=== PATIENT | male | born 1975 | race Caucasian/White ===

== ENCOUNTER 2017-07-07 22:28 | Emergency (ER) | payer OTHER ==
[2017-07-07] MEDS ORDERED: Albuterol/Ipratropium 3.0-0.5 MG/3 ML Neb Soln NEB ONE (23:23)
--- NOTE | 2017-07-07 23:25 | EDM.PDOC ---
ED HPI GENERAL MEDICAL PROBLEM - General Chief Complaint: Respiratory Problem Stated Complaint: COUGH/CONGESTION/FEVER Time Seen by Provider: 07/07/17 23:18 - History of Present Illness INITIAL COMMENTS - FREE TEXT/NARRATIVE: HISTORY AND PHYSICAL: History of present illness: The patient is a healthy 41-year-old male with no stated medical history who does smoke cigarettes but no drug use and presents with a one-week history of dry hacking cough sore throat and nasal congestion and subjective fevers and body aches. He's had no vomiting or diarrhea no chest pain no shortness of breath and no abdominal complaints. Patient did not get his flu shot this year. Review of systems: As per history of present illness and below otherwise all systems reviewed and negative. Past medical history: As per history of present illness and as reviewed below otherwise noncontributory. Surgical history: As per history of present illness and as reviewed below otherwise noncontributory. Social history: No reported history of drug or alcohol abuse. Family history: As per history of present illness and as reviewed below otherwise noncontributory. Physical exam: Gen.: Well-developed well-nourished man who was slight raspiness to his voice and has a dry cough I appreciated in the ER. Vital signs were noted by me HEENT: Atraumatic, normocephalic, pupils reactive, negative for conjunctival pallor or scleral icterus, mucous membranes moist, throat clear of exudates but there is diffuse erythema, there is some anterior cervical adenopathy but no posterior adenopathy or nuchal rigidity, neck supple, nontender, trachea midline. Lungs: Clear to auscultation, breath sounds equal bilaterally, chest nontender. No wheezing stridor or sensory muscle use Heart: S1S2, regular, negative for clicks, rubs, or JVD. Abdomen: Soft, nondistended, nontender. NABS. Pelvis: Deferred Genitourinary: Deferred. Rectal: Deferred. Extremities: Atraumatic, negative for cords or calf pain. Neurovascular unremarkable. Neuro: Awake, alert, oriented. Cranial nerves II through XII unremarkable. Cerebellum unremarkable. Motor and sensory unremarkable throughout. Exam nonfocal. Diagnostics: Rapid strep influenza chest x-ray Therapeutics: DuoNeb Spacer and spacer teaching Impression: Bronchitis Definitive disposition and diagnosis as appropriate pending reevaluation and review of above. denies pain Pain Score (Numeric/FACES): 0 - Related Data Allergies Allergy/AdvReac Type Severity Reaction Status Date / Time No Known Allergies Allergy Verified 07/07/17 23:07 Home Meds: Home Meds . [No Known Home Meds] 07/07/17 [History] Past Medical History HEENT History: Reports: None Cardiovascular History: Reports: None Respiratory History: Reports: None Gastrointestinal History: Reports: None Genitourinary History: Reports: None Musculoskeletal History: Reports: None Neurological History: Reports: None Psychiatric History: Reports: None Endocrine/Metabolic History: Reports: None Hematologic History: Reports: None Immunologic History: Reports: None Oncologic (Cancer) History: Reports: None Dermatologic History: Reports: None - Infectious Disease History Infectious Disease History: Reports: None - Past Surgical History Head Surgeries/Procedures: Reports: None Social & Family History - Family History Family Medical History: Noncontributory - Tobacco Use Smoking Status *Q: Current Every Day Smoker Years of Tobacco use: 20 Packs/Tins Daily: 1 - Caffeine Use Caffeine Use: Reports: None - Recreational Drug Use Recreational Drug Use: No ED ROS GENERAL - Review of Systems Review Of Systems: ROS reveals no pertinent complaints other than HPI. ED EXAM, GENERAL - Physical Exam Exam: See Below (See dictation) Course - Vital Signs Last Recorded V/S: Last Vital Signs Temp 36.8 C 07/07/17 23:07 Pulse 77 07/07/17 23:07 Resp 18 07/07/17 23:07 BP 122/82 07/07/17 23:07 Pulse Ox 97 07/07/17 23:07 - Orders/Labs/Meds Orders: Active Orders 24 hr Category Date Time Status Communication Order [RC] STAT Care 07/08/17 00:24 Ordered RT Aerosol Therapy [RC] ASDIRECTED Care 07/07/17 23:23 Active Chest 2V [CR] Stat Exams 07/07/17 23:23 Taken CULTURE STREP A CONFIRMATION [RM] Stat Lab 07/07/17 23:41 Results STREP SCRN A RAPID W CULT CONF [RM] Stat Lab 07/07/17 23:41 Results Meds: Medications Discontinued Medications Generic Name Dose Route Start Last Admin Trade Name Freq PRN Reason Stop Dose Admin Albuterol/Ipratropium 3 ml 07/07/17 23:23 07/07/17 23:46 Duoneb 3.0-0.5 Mg/3 Ml NEB 07/07/17 23:24 3 ml ONETIME ONE Administration Departure - Departure Time of Disposition: 00:25 Disposition: Home, Self-Care 01 Condition: Good Clinical Impression: Bronchitis - Discharge Information Referrals: PCP,None [Primary Care Provider] - Forms: ED Department Discharge Additional Instructions: The following information is given to patients seen in the emergency department who are being discharged to home. This information is to outline your options for follow-up care. We provide all patients seen in our emergency department with a follow-up referral. The need for follow-up, as well as the timing and circumstances, are variable depending upon the specifics of your emergency department visit. If you don't have a primary care physician on staff, we will provide you with a referral. We always advise you to contact your personal physician following an emergency department visit to inform them of the circumstance of the visit and for follow-up with them and/or the need for any referrals to a consulting specialist. The emergency department will also refer you to a specialist when appropriate. This referral assures that you have the opportunity for followup care with a specialist. All of these measure are taken in an effort to provide you with optimal care, which includes your followup. Under all circumstances we always encourage you to contact your private physician who remains a resource for coordinating your care. When calling for followup care, please make the office aware that this follow-up is from your recent emergency room visit. If for any reason you are refused follow-up, please contact the [facility] emergency department at and ask to speak to the emergency department charge nurse. [facility]- [facility] Family [address] [address] Push hydration and use all medications given to you from [facility] as directed. With the albuterol please use the spacer and use it every 6 hours for the next 2 days and then every 6 hours as needed afterwards. Use cough medicine only when you're at home. These call and make a clinic appointment for follow- up and reevaluation and return to ER as needed as discussed - My Orders Last 24 Hours: My Active Orders 07/07/17 23:23 RT Aerosol Therapy [RC] ASDIRECTED Chest 2V [CR] Stat 07/07/17 23:41 CULTURE STREP A CONFIRMATION [RM] Stat STREP SCRN A RAPID W CULT CONF [RM] Stat 07/08/17 00:24 Communication Order [RC] STAT - Assessment/Plan Last 24 Hours: My Active Orders 07/07/17 23:23 RT Aerosol Therapy [RC] ASDIRECTED Chest 2V [CR] Stat 07/07/17 23:41 CULTURE STREP A CONFIRMATION [RM] Stat STREP SCRN A RAPID W CULT CONF [RM] Stat 07/08/17 00:24 Communication Order [RC] STAT
--- NOTE | 2017-07-09 18:47 | CR ---
EXAM DATE: 07/07/17 PATIENT'S AGE: 41 Patient: JAVI RAMOS Facility: [place], [place] Site . Site : [id number] Study: XRay Chest [id number]/14/2018 12:04:57 AM Ordering Physician: Glenys Gibson Final Report: TECHNIQUE: PA and lateral chest. INDICATION: Pain, shortness of breath, and cough. FINDINGS: Benign calcified granuloma in the left upper lobe. Lungs otherwise clear. Normal heart size and pulmonary vascularity. No effusion. No pneumothorax. IMPRESSION: No acute chest findings. Dictated by John Wise MD @ 07/08/2017 12:17:57 AM Dictated by: John Wise MD @ 07/08/2017 00:18:04 (Electronic Signature) Report Signed by Proxy. [facility]
== END 2017-07-08 00:47 | disposition home or self-care (01) ==
LOC: MW.ED 22:28
DX: J40 Bronchitis, not specified as acute or chronic (principal); F17.210 Nicotine dependence, cigarettes, uncomplicated
CPT/HCPCS: 71046; 71046-26; 87081; 87804; 87880; 94640; 99284; 99284-25

== ENCOUNTER 2019-08-06 22:20 | Emergency (ER) | payer OTHER ==
[2019-08-06] MEDS ORDERED: Aspirin 325 MG Tab PO ONE (22:39)
--- NOTE | 2019-08-06 22:42 | CR ---
INDICATION: Chest pain TECHNIQUE: Chest radiograph 1 view COMPARISON: 07/07/17 FINDINGS: Mediastinum: The mediastinum is normal in appearance. The heart silhouette is normal in size and morphology. Lung: Both lungs are unremarkable in appearance. A stable granuloma with linear central calcification is noted in the left apex, measuring 12 mm. No sign of pleural effusion seen. No pneumothorax is identified. Bone and Soft tissue: Unremarkable for age. IMPRESSION: 1. No acute cardiopulmonary disease is seen. Dictated by: Tolu Benz MD @ 08/06/2019 22:40:50 (Electronically Signed)
[2019-08-06 23:06] LABS: BLOOD UREA NITROGEN,BUN 17 mg/dL (7.0-18.0); CARBON DIOXIDE,CO2 32.6 mmol/L (21.0-32.0); CHLORIDE,CL 104 mmol/L (98-107); GLUCOSE RANDOM 74 mg/dL (74-106); POTASSIUM,K 3.6 mmol/L (3.5-5.1); SODIUM,NA 141 mmol/L (136-148)
--- NOTE | 2019-08-07 02:15 | EDM.PDOC ---
ED HPI GENERAL MEDICAL PROBLEM - General Chief Complaint: Chest Pain Stated Complaint: CHEST PAIN, NUMBNESS IN LEFT ARM Time Seen by Provider: 08/06/19 22:38 Source of Information: Reports: Patient History Limitations: Reports: No Limitations - History of Present Illness INITIAL COMMENTS - FREE TEXT/NARRATIVE: CC chest pain HPI: This is a 43-year-old male who is a smoker. Patient awoke with substernal chest pressure radiating down his left arm denies any shortness of breath nausea or diaphoresis. No recent cough no leg or calf pain patient has no medical problems in the past but there is a family history of heart disease PMHX/PSHX: Negative Social History: Positive for tobacco, negative for alcohol, negative for street drugs or marijuana Family history: Hypertension ROS: see chart PE: VS afebrile vital signs stable General: No apparent distress Head: Atraumatic normocephalic no lumps bumps or bruises Eyes: EOMI PERRLA Ears: TMs intact no hemotympanum no signs of infection no mastoid tenderness Nose: No epistaxis nares patent no septal wall hematoma Throat: No pharyngeal erythema or exudate no tonsillar enlargement Neck: Supple, no cervical lymphadenopathy Chest wall: No point tenderness Heart: Regular rate and rhythm without murmur gallop or rub Lungs: Clear to auscultation and percussion without rales rhonchi or wheeze Abdomen: Soft nontender nondistended without guarding rigidity or rebound Neck: No spinal point tenderness full range of motion in all 6 directions Back: No spinal paraspinal or CVA tenderness Extremities: full rom through out. no effusions skin: Warm dry intact no rashes neurologic: cranial nerves II through XII intact. No focal motor or sensory deficits noted MDM: Differential diagnosis: Acute coronary syndrome pulmonary embolism aortic dissection gastroesophageal reflux ED course: EKG and serial troponins including a 4-hour troponin were negative patient's been pain-free throughout his stay here. He was administered aspirin. He was given advice on how to quit smoking. He was counseled on taking daily aspirin and following up with his primary care doctor within the next 1 to 2 days for further outpatient work-up. He was given strict return precautions respiratory rate 12 white count no leg or calf pain unlikely this patient has a pulmonary embolism. No characteristics of his history consistent with an aortic dissection in his mediastinum was narrow on chest film. Pulses both upper extremities equal so aortic dissection unlikely. Diagnosis: Chest pain Disposition: Home chest Pain Score (Numeric/FACES): 0 - Related Data Allergies Allergy/AdvReac Type Severity Reaction Status Date / Time No Known Allergies Allergy Verified 08/06/19 22:23 Home Meds: Home Meds buPROPion [Wellbutrin] 75 mg PO BEDTIME #30 tab 08/07/19 [Rx] Past Medical History HEENT History: Reports: None Cardiovascular History: Reports: None Respiratory History: Reports: None Gastrointestinal History: Reports: None Genitourinary History: Reports: None Musculoskeletal History: Reports: None Neurological History: Reports: None Psychiatric History: Reports: None Endocrine/Metabolic History: Reports: None Hematologic History: Reports: None Immunologic History: Reports: None Oncologic (Cancer) History: Reports: None Dermatologic History: Reports: None - Infectious Disease History Infectious Disease History: Reports: None - Past Surgical History Head Surgeries/Procedures: Reports: None Other Musculoskeletal Surgeries/Procedures:: right leg surgery when a child Social & Family History - Family History Family Medical History: Noncontributory - Tobacco Use Smoking Status *Q: Current Every Day Smoker Years of Tobacco use: 20 Packs/Tins Daily: 1 - Caffeine Use Caffeine Use: Reports: Soda - Recreational Drug Use Recreational Drug Use: No ED ROS GENERAL - Review of Systems Review Of Systems: Comprehensive ROS is negative, except as noted in HPI. ED EXAM, GENERAL - Physical Exam Exam: See Below Free Text/Narrative:: See my dictation Course - Vital Signs Last Recorded V/S: Last Vital Signs Temp 36.1 C 08/06/19 22:24 Pulse 111 H 08/07/19 01:24 Resp 15 08/07/19 01:24 BP 125/89 08/07/19 01:24 Pulse Ox 95 08/07/19 01:24 - Orders/Labs/Meds Orders: Active Orders 24 hr Category Date Time Status EKG Documentation Completion [RC] STAT Care 08/06/19 22:32 Active Labs: Laboratory Tests 08/06/19 08/06/19 08/07/19 Range/Units 22:23 22:23 01:30 WBC 10.29 (4.0-11.0) K/uL RBC 5.38 (4.50-5.90) M/uL Hgb 16.2 (13.0-17.0) g/dL Hct 45.8 (38.0-50.0) % MCV 85.1 (80.0-98.0) fL MCH 30.1 (27.0-32.0) pg MCHC 35.4 (31.0-37.0) g/dL RDW Std Deviation 42.3 (28.0-62.0) fl RDW Coeff of Dean 14 (11.0-15.0) % Plt Count 204 (150-400) K/uL MPV 10.00 (7.40-12.00) fL Neut % (Auto) 49.2 (48.0-80.0) % Lymph % (Auto) 31.7 (16.0-40.0) % Swift % (Auto) 13.4 (0.0-15.0) % Eos % (Auto) 5.3 (0.0-7.0) % Baso % (Auto) 0.4 (0.0-1.5) % Neut # (Auto) 5.1 (1.4-5.7) K/uL Lymph # (Auto) 3.3 H (0.6-2.4) K/uL Swift # (Auto) 1.4 H (0.0-0.8) K/uL Eos # (Auto) 0.6 (0.0-0.7) K/uL Baso # (Auto) 0.0 (0.0-0.1) K/uL Nucleated RBC % 0.0 /100WBC Nucleated RBCs # 0 K/uL Sodium 141 (136-148) mmol/L Potassium 3.6 (3.5-5.1) mmol/L Chloride 104 (98-107) mmol/L Carbon Dioxide 32.6 H (21.0-32.0) mmol/L BUN 17 (7.0-18.0) mg/dL Creatinine 0.9 (0.8-1.3) mg/dL Est Cr Clr Drug Dosing 106.92 mL/min Estimated GFR (MDRD) > 60.0 ml/min Glucose 74 (74-106) mg/dL Calcium 9.1 (8.5-10.1) mg/dL Troponin I < 0.050 < 0.050 (0.000-0.056) ng/mL Meds: Medications Discontinued Medications Generic Name Dose Route Start Last Admin Trade Name Mariaelena PRN Reason Stop Dose Admin Aspirin 325 mg 08/06/19 22:39 08/06/19 22:50 Aspirin PO 08/06/19 22:40 325 mg ONETIME ONE Administration Departure - Departure Time of Disposition: 02:13 Disposition: Home, Self-Care 01 Clinical Impression: Chest pain Qualifiers: Chest pain type: unspecified Qualified Code(s): R07.9 - Chest pain, unspecified Prescriptions: buPROPion [Wellbutrin] 75 mg PO BEDTIME #30 tab Instructions: Nonspecific Chest Pain, [id number], Aspirin and Your Heart Referrals: PCP,None [Primary Care Provider] - Sepsis Event Note - Evaluation Sepsis Screening Result: No Definite Risk - Focused Exam Vital Signs: Vital Signs Temp Pulse Resp BP Pulse Ox 08/07/19 01:24 111 H 15 125/89 95 08/07/19 00:55 92 14 117/70 93 L 08/07/19 00:11 82 14 116/69 94 L 08/06/19 23:34 78 14 121/79 95 08/06/19 22:51 86 15 127/84 95 08/06/19 22:24 36.1 C 96 18 155/96 H 97 Date Exam was Performed: 08/07/19 Time Exam was Performed: 02:11 - My Orders Last 24 Hours: My Active Orders 08/06/19 22:32 EKG Documentation Completion [RC] STAT - Assessment/Plan Last 24 Hours: My Active Orders 08/06/19 22:32 EKG Documentation Completion [RC] STAT
== END 2019-08-07 02:23 | disposition home or self-care (01) ==
LOC: MW.ED 22:20
DX: R07.2 Precordial pain (principal); F17.210 Nicotine dependence, cigarettes, uncomplicated
CPT/HCPCS: 36415; 71045; 80048; 84484; 85025; 93005; 99285; A9270

== ENCOUNTER 2023-02-25 10:08 | Emergency (ER) | payer OTHER ==
[2023-02-25] MEDS ORDERED: Sodium Chloride 0.9% 1,000 ML IV ONE (10:21)
[2023-02-25] MEDS ORDERED: Ketorolac 30 MG/ML SDV IVPUSH ONE (10:21)
[2023-02-25] MEDS ORDERED: Ondansetron 4 MG/2 ML SDV IVPUSH ONE (10:22)
[2023-02-25 10:41] LABS: BASOPHILS ABSOLUTE AUTO 0.1 K/uL (0.0-0.1); BASOPHILS PERCENT AUTO 0.7 % (0.0-1.5); EOSINOPHILS ABSOLUTE AUTO 0.6 K/uL (0.0-0.7); EOSINOPHILS PERCENT AUTO 7.5 % (0.0-7.0); HEMATOCRIT 45.7 % (38.0-50.0); HEMOGLOBIN 16.1 g/dL (13.0-17.0); LYMPHOCYTES ABSOLUTE AUTO 3.3 K/uL (0.6-2.4); LYMPHOCYTES PERCENT AUTO 39.3 % (16.0-40.0); MEAN CORPUSCULAR HEMOGLOBIN 30.2 pg (27.0-32.0); MEAN CORPUSCULAR HGB CONC 35.2 g/dL (31.0-37.0); MEAN CORPUSCULAR VOLUME 85.7 fL (80.0-98.0); MONOCYTES ABSOLUTE AUTO 0.8 K/uL (0.0-0.8); NEUTROPHILS ABSOLUTE AUTO 3.5 K/uL (1.4-5.7); NEUTROPHILS PERCENT AUTO 42.5 % (48.0-80.0); NRBC ABSOLUTE 0 K/uL; PLATELET COUNT,PLT 208 K/uL (150-400); RED BLOOD CELL COUNT 5.33 M/uL (4.50-5.90); WHITE BLOOD CELL COUNT,WBC 8.27 K/uL (4.0-11.0)
[2023-02-25] MEDS ORDERED: Aspirin 81 MG Tab.Chew PO ONE (10:57)
[2023-02-25 11:16] LABS: ALBUMIN 3.6 g/dL (3.4-5.0); BILIRUBIN TOTAL 0.5 mg/dL (0.2-1.0); CALCIUM 8.7 mg/dL (8.5-10.1); CARBON DIOXIDE,CO2 24.3 mmol/L (21.0-32.0); CREATININE 0.9 mg/dL (0.8-1.3); EST CRCL DRUG DOSING (CG) 102.56 mL/min; PROTEIN TOTAL,TP 7.2 g/dL (6.4-8.2)
== END 2023-02-25 12:56 | disposition home or self-care (01) ==
LOC: MW.ED 10:08
DX: R07.9 Chest pain, unspecified (principal); R20.2 Paresthesia of skin; R42 Dizziness and giddiness
CPT/HCPCS: 36415; 71045; 80053; 83690; 84484; 85025; 85379; 93005; 96361; 96374; 96375; 99285; A9270; J1885; J2405; J7030; 93010; 99284

== ENCOUNTER 2025-03-05 18:17 | Observation (INO) | payer OTHER ==
[2025-03-05] MEDS: Lactated Ringers 1,000 ML IV ONE ×2 (18:33→21:24)
[2025-03-05 18:56] LABS: MEAN PLATELET VOLUME 9.6 fL (9.4-12.4); NRBC ABSOLUTE 0.00 K/uL (0.00-0.02); NRBC PERCENT 0.0 /100WBC (0.0-0.2); PLATELET COUNT,PLT 190 K/uL (150-400); RED BLOOD CELL COUNT 4.88 M/uL (4.52-5.90); WHITE BLOOD CELL COUNT,WBC 13.01 K/uL (3.9-11.3)
[2025-03-05 19:21] LABS: EOSINOPHILS ABSOLUTE MAN 1.04 K/uL (0.00-0.45); EOSINOPHILS PERCENT MAN 8 % (0-6); LYMPHOCYTES ABSOLUTE MAN 4.55 K/uL (1.00-4.80); LYMPHOCYTES PERCENT MAN 35 % (24-44); MONOCYTES ABSOLUTE MAN 1.82 K/uL (0.00-0.80); MONOCYTES PERCENT MAN 14 % (0-8); SEG NEUTROPHILS ABSOLUTE MAN 5.59 K/uL (1.80-7.70); SEG NEUTROPHILS PERCENT MAN 43 % (41-71)
[2025-03-05 19:30] LABS: A/G RATIO 1.1 (0.9-1.6); ALANINE AMINOTRANSFERASE,ALT 30.0 IU/L (14-63); ASPARTATE AMNIOTRANSFERASE,AST 19.0 IU/L (15-37); BILIRUBIN TOTAL 0.3 mg/dL (0.2-1.0); BLOOD UREA NITROGEN,BUN 22.0 mg/dL (7.0-18.0); CARBON DIOXIDE,CO2 25.1 mmol/L (21.0-32.0); CHLORIDE,CL 105.0 mmol/L (98-107); CREATININE 1.1 mg/dL (0.8-1.3); EST CRCL DRUG DOSING (CG) 82.13 mL/min; ESTIMATED GFR 83.0 mL/min (>60); GLUCOSE RANDOM 137.0 mg/dL (74-106); POTASSIUM,K 3.7 mmol/L (3.5-5.1); PROTEIN TOTAL,TP 6.6 g/dL (6.4-8.2); SODIUM,NA 141.0 mmol/L (136-148)
[2025-03-05] MEDS: Iopamidol 755 MG/ML 500 ML Multipack Bottle IVPUSH STA (19:45)
[2025-03-05] MEDS: Promethazine 25 MG/ML SDV IM ONE (20:12)
[2025-03-05] MEDS: Dexamethasone 4 MG/ML SDV IVPUSH STA (21:11)
[2025-03-05] MEDS: Dexamethasone Sod Phos Preservative Free 10 MG/ML Vial ONE (21:25)
[2025-03-05] MEDS: Dexamethasone 10 MG/ML SDV IVPUSH ONE (21:26)
[2025-03-05] MEDS ORDERED: Sodium Chloride 0.9% 10 ML Syringe FLUSH PRN (22:49)
[2025-03-05] MEDS ORDERED: Sodium Chloride 0.9% 2.5 ML Syringe FLUSH PRN (22:49)
[2025-03-06] MEDS: Pantoprazole 40 MG in Sodium Chloride 0.9% 10 ML IVPUSH SCH (00:10)
[2025-03-06 06:32] LABS: BASOPHILS ABSOLUTE AUTO 0.02 K/uL (0.00-0.20); BASOPHILS PERCENT AUTO 0.1 % (0.0-1.0); EOSINOPHILS ABSOLUTE AUTO 0.02 K/uL (0.00-0.45); EOSINOPHILS PERCENT AUTO 0.1 % (0.0-6.0); IMMATURE GRAN ABSOLUTE AUTO 0.05 K/uL (0.00-0.05); IMMATURE GRAN PERCENT AUTO 0.4 % (0.0-0.4); LYMPHOCYTES ABSOLUTE AUTO 1.41 K/uL (1.00-4.80); LYMPHOCYTES PERCENT AUTO 10.5 % (24.0-44.0); MEAN PLATELET VOLUME 10.2 fL (9.4-12.4); MONOCYTES ABSOLUTE AUTO 0.17 K/uL (0.00-0.80); MONOCYTES PERCENT AUTO 1.3 % (0.0-8.0); NEUTROPHILS ABSOLUTE AUTO 11.73 K/uL (1.80-7.70); NEUTROPHILS PERCENT AUTO 87.6 % (41.0-71.0); NRBC ABSOLUTE 0.00 K/uL (0.00-0.02); NRBC PERCENT 0.0 /100WBC (0.0-0.2); PLATELET COUNT,PLT 211 K/uL (150-400); RED BLOOD CELL COUNT 5.38 M/uL (4.52-5.90); WHITE BLOOD CELL COUNT,WBC 13.40 K/uL (3.9-11.3)
[2025-03-06 06:57] LABS: A/G RATIO 1.0 (0.9-1.6); ALANINE AMINOTRANSFERASE,ALT 30.0 IU/L (14-63); ASPARTATE AMNIOTRANSFERASE,AST 17.0 IU/L (15-37); BILIRUBIN TOTAL 0.4 mg/dL (0.2-1.0); BLOOD UREA NITROGEN,BUN 15.0 mg/dL (7.0-18.0); CARBON DIOXIDE,CO2 24.1 mmol/L (21.0-32.0); CHLORIDE,CL 102.0 mmol/L (98-107); CREATININE 0.9 mg/dL (0.8-1.3); EST CRCL DRUG DOSING (CG) 100.38 mL/min; GLUCOSE RANDOM 151.0 mg/dL (74-106); POTASSIUM,K 3.9 mmol/L (3.5-5.1); PROTEIN TOTAL,TP 6.7 g/dL (6.4-8.2); SODIUM,NA 138.0 mmol/L (136-148)
[2025-03-06 07:00] LABS: ESTIMATED GFR 105.0 mL/min (>60)
[2025-03-06] MEDS: Ondansetron 4 MG/2 ML SDV IVPUSH PRN (08:58)
[2025-03-06] MEDS: Fluticasone NASAL Spray 16 GM Bottle NASBOTH SCH (11:03)
[2025-03-06] MEDS: LORazepam 2 MG/ML SDV IVPUSH ONE ×2 (14:11)
[2025-03-06] MEDS: Gadoteridol 279.3 MG/ML 20 ML SDV IVPUSH ONE (14:44)
[2025-03-06] MEDS: Amoxicillin/Clavulanate K 875-125 MG Tab PO SCH (18:37)
[2025-03-07 06:14] LABS: BASOPHILS ABSOLUTE AUTO 0.02 K/uL (0.00-0.20); BASOPHILS PERCENT AUTO 0.1 % (0.0-1.0); EOSINOPHILS ABSOLUTE AUTO 0.11 K/uL (0.00-0.45); EOSINOPHILS PERCENT AUTO 0.8 % (0.0-6.0); IMMATURE GRAN ABSOLUTE AUTO 0.16 K/uL (0.00-0.05); IMMATURE GRAN PERCENT AUTO 1.1 % (0.0-0.4); LYMPHOCYTES ABSOLUTE AUTO 3.25 K/uL (1.00-4.80); LYMPHOCYTES PERCENT AUTO 22.2 % (24.0-44.0); MEAN PLATELET VOLUME 9.9 fL (9.4-12.4); MONOCYTES ABSOLUTE AUTO 0.91 K/uL (0.00-0.80); MONOCYTES PERCENT AUTO 6.2 % (0.0-8.0); NEUTROPHILS ABSOLUTE AUTO 10.19 K/uL (1.80-7.70); NEUTROPHILS PERCENT AUTO 69.6 % (41.0-71.0); NRBC ABSOLUTE 0.00 K/uL (0.00-0.02); NRBC PERCENT 0.0 /100WBC (0.0-0.2); PLATELET COUNT,PLT 202 K/uL (150-400); RED BLOOD CELL COUNT 5.33 M/uL (4.52-5.90); WHITE BLOOD CELL COUNT,WBC 14.64 K/uL (3.9-11.3)
[2025-03-07 06:31] LABS: BLOOD UREA NITROGEN,BUN 15.0 mg/dL (7.0-18.0); CARBON DIOXIDE,CO2 24.7 mmol/L (21.0-32.0); CHLORIDE,CL 103.0 mmol/L (98-107); CREATININE 1.0 mg/dL (0.8-1.3); EST CRCL DRUG DOSING (CG) 90.34 mL/min; GLUCOSE RANDOM 153.0 mg/dL (74-106); POTASSIUM,K 3.6 mmol/L (3.5-5.1); SODIUM,NA 138.0 mmol/L (136-148)
[2025-03-07 06:34] LABS: ESTIMATED GFR 93.0 mL/min (>60)
== END 2025-03-07 11:20 | disposition home or self-care (01) ==
LOC: MW.ED 18:17 → MW.MS 22:14
PROVIDERS: ADMIT Internal Medicine; ATTEND Internal Medicine
DX: K52.9 Noninfective gastroenteritis and colitis, unspecified (principal); R42 Dizziness and giddiness
CPT/HCPCS: 36415; 70450; 70553; 71045; 71275; 74177; 80048; 80053; 84484; 85025; 87428; 93005; 96361; 96374; 97162; 99285; A9270; A9579; J1100; J2060; J2405; J2470; J7030; J7120; Q9967; 93010; 96375; 96376; G0378